=== PATIENT | female | born 1990 | race Caucasian/White ===

== ENCOUNTER → 2016-12-02 | Outpatient (CLI) | payer OTHER ==
[~2016-12-02] MED LIST: LEXAPRO 5MG5 MG PO; LUNESTA2 M1 PO; MOTRIN 600600 MG/TAB PO; PERCOCET 325 MG1 TA2 PO
== END ==
LOC: COL.RAD 10:12
DX: K82.8 Other specified diseases of gallbladder (principal)

== ENCOUNTER → 2016-12-11 | Outpatient (CLI) | payer OTHER | LOC: COL.RAD 07:26 | DX: R10.11 Right upper quadrant pain (principal); R11.10 Vomiting, unspecified | CPT/HCPCS: A9537 ==

== ENCOUNTER 2020-03-10 14:51 | Emergency (ER) | payer BC ==
[~2020-03-10] VITALS: Ht 177.8 cm; Wt 79.5 kg
[2020-03-10 14:55] VITALS: TEMP 98.8
[2020-03-10 16:03] LABS: BASO % 0.4 % (0.0-2.0); EOS # 0.2 (0.0-0.7); EOS % 1.8 % (0-4.0); GRAN # 7.1 (1.4-6.5); GRAN % 73.6 % (42.2-75.2); HEMATOCRIT 39.8 % (37.0-47.0); HEMOGLOBIN 13.2 g/dl (12.5-16.0); LYMPH # 1.9 (1.2-3.4); LYMPH % 19.4 % (20.0-51.0); MEAN CELL VOLUME 94 fl (80.0-100.0); MEAN CORPUSCULAR HEMOGLOBIN 31 pg (27.0-31.0); MEAN CORPUSCULAR HGB CONC 33 g/dl (33.0-37.0); MEAN PLATELET VOLUME 9.6 fl (7.4-10.4); MONO # 0.4 (0.1-0.6); MONO % 4.6 % (1.7-9.3); PLATELET COUNT 299 K/mm3 (130-400); RED BLOOD COUNT 4.23 M/mm3 (4.10-5.30); REDCELL DISTRIBUTION WIDTH-CV 13.4 % (11.5-14.5)
[2020-03-10 16:11] LABS: ALBUMIN 4.4 gm/dL (3.5-5.0); BILIRUBIN,TOTAL 0.4 mg/dL (0.0-1.0); CALCIUM 9.1 mg/dL (8.4-10.2); CREATININE, serum 0.79 (0.52-1.25); POTASSIUM 3.7 mmol/L (3.4-5.0); TOTAL PROTEIN 7.1 gm/dL (6.4-8.2)
[2020-03-10] MEDS ORDERED: DECADRON6 MG PO (18:03)
[2020-03-10] MEDS ORDERED: TORADOL 10MG TA10 MG PO (18:03)
[2020-03-10] MEDS ORDERED: PROVENTIL0.09 MG/A1 IH (18:06)
[2020-03-10 18:22] VITALS: BP 119/63; PULSE 86
== END 2020-03-10 18:24 | disposition home or self-care (01) ==
LOC: COL.ER 14:51
PROVIDERS: Nurse Practitioner Family
DX: R07.81 Pleurodynia (principal); F17.210 Nicotine dependence, cigarettes, uncomplicated; Z86.19 Personal history of other infectious and parasitic diseases; Z88.2 Allergy status to sulfonamides
CPT/HCPCS: J1100; J1885; J7030; Q9967

== ENCOUNTER 2023-06-02 13:00 | Emergency (ER) | payer SELFPAY ==
[~2023-06-02] VITALS: Ht 172.7 cm; Wt 75.0 kg
[~2023-06-02 13:00] MED LIST changes: +DECADRON6 MG PO; +PROVENTIL0.09 MG/A1 IH; +TORADOL 10MG TA10 MG PO
[2023-06-02 13:16] VITALS: TEMP 98.8
[2023-06-02] MEDS ORDERED: Ibuprofen 600 MG TAB PO ONE (14:30)
[2023-06-02] MEDS ORDERED: Clindamycin 150 MG CAP PO ONE (14:30)
[2023-06-02] MEDS ORDERED: ULTRAM 50MG TAB50 MG PO (14:38)
[2023-06-02] MEDS ORDERED: CLEOCIN HC150 MG/CAP PO (14:38)
[2023-06-02 15:00] VITALS: BP 119/65; PULSE 50
== END 2023-06-02 15:00 | disposition home or self-care (01) ==
LOC: COL.ER 13:00
DX: L03.115 Cellulitis of right lower limb (principal)